=== PATIENT | male | born 1985 | race Caucasian/White ===

== ENCOUNTER 2020-12-15 14:19 | Emergency (ER) | payer OTHER ==
[~2020-12-15 14:19] MED LIST: AUGMENTIN 875-1 EACH PO; BENTYL 20MG TAB20 MG PO; BUPRENORPHIN-N1 EACH PO; PERCOCET 5/325 T1 EA PO; PROTONIX40 MG PO; SILVADENE CREAM20 GM TOP; ZOFRAN4 MG PO
[2020-12-15 14:41] LABS: HEMOGLOBIN 17.1 gm/dl (14.0-17.5); RED BLOOD COUNT 5.57 M/UL (4.20-5.50); WHITE BLOOD COUNT 12.1 K/UL (4.5-11.0)
[2020-12-15 15:09] LABS: BUN/CREATININE RATIO 12 (0-10)
[2020-12-15] MEDS ORDERED: AEROCHAMBER1 EA XX (16:05)
[2020-12-15] MEDS ORDERED: VENTOLIN HFA 66.7 GM INH (16:05)
== END 2020-12-15 16:18 | disposition home or self-care (01) ==
LOC: ER1 14:19
PROVIDERS: Family Medicine
DX: R05 Cough (principal); R06.02 Shortness of breath; Z88.1 Allergy status to other antibiotic agents; Z20.822 Contact with and (suspected) exposure to COVID-19; Z79.899 Other long term (current) drug therapy
CPT/HCPCS: 0240U; 71045; 80053; 82550; 82553; 83605; 83874; 83880; 84484; 85025; 93005; 94664; 94760; 99285

== ENCOUNTER 2021-08-24 11:57 | Emergency (ER) | payer OTHER ==
[~2021-08-24 11:57] MED LIST changes: +AEROCHAMBER1 EA XX; +VENTOLIN HFA 66.7 GM INH
[2021-08-24] MEDS ORDERED: KEFLEX750 MG PO (13:32)
== END 2021-08-24 14:45 | disposition home or self-care (01) ==
LOC: ER1 11:57
DX: M70.21 Olecranon bursitis, right elbow (principal)
CPT/HCPCS: 73080; 99283

== ENCOUNTER 2022-01-14 18:09 | Emergency (ER) | payer OTHER ==
[~2022-01-14 18:09] MED LIST changes: +KEFLEX750 MG PO
[2022-01-14] MEDS ORDERED: IBUPROFEN800 MG PO (20:17)
== END 2022-01-14 20:30 | disposition home or self-care (01) ==
LOC: ER1 18:09
DX: S86.911A Strain of unspecified muscle(s) and tendon(s) at lower leg level, right leg, initial encounter (principal); X50.9XXA Other and unspecified overexertion or strenuous movements or postures, initial encounter; Y92.009 Unspecified place in unspecified non-institutional (private) residence as the place of occurrence of the external cause
CPT/HCPCS: 73560; 96374; 99283; J1885

== ENCOUNTER → 2022-02-06 | Outpatient (CLI) | payer OTHER ==
[~2022-02-06] MED LIST changes: +IBUPROFEN800 MG PO
== END ==
LOC: EMI 02-05 15:45
DX: S83.511A Sprain of anterior cruciate ligament of right knee, initial encounter (principal); S83.211A Bucket-handle tear of medial meniscus, current injury, right knee, initial encounter; M85.661 Other cyst of bone, right lower leg
CPT/HCPCS: 73721

== ENCOUNTER → 2022-02-27 | Day surgery (SDC) | payer OTHER ==
[~2022-02-27] VITALS: Ht 177.8 cm; Wt 74.4 kg
== END | disposition home or self-care (01) ==
LOC: OR 07:31
DX: S83.211A Bucket-handle tear of medial meniscus, current injury, right knee, initial encounter (principal); X50.1XXA Overexertion from prolonged static or awkward postures, initial encounter
CPT/HCPCS: J0171; J0690; J1100; J1885; J2001; J2250; J2405; J2704; J3010